=== PATIENT | male | born 2000 | race Caucasian/White ===

== ENCOUNTER 2021-05-21 00:23 | Emergency (ER) | payer OTHER, SELFPAY ==
[2021-05-21] MEDS ORDERED: Ondansetron PF 4 MG/2 ML Vial ONE (00:51)
[2021-05-21] MEDS ORDERED: Boostrix 0.5 ML (Tdap) VIAL ONE (01:03)
[2021-05-21] MEDS ORDERED: Lidocaine 1% (PF) 30 ML VIAL ONE (01:26)
== END 2021-05-21 03:20 | disposition home or self-care (01) ==
LOC: ERS 00:23
DX: S05.42XA Penetrating wound of orbit with or without foreign body, left eye, initial encounter (principal); W01.0XXA Fall on same level from slipping, tripping and stumbling without subsequent striking against object, initial encounter
CPT/HCPCS: 12013; 70450; 72125; 90471; 90715; 96374; J2001; J2405